=== PATIENT | male | born 1995 | race Caucasian/White ===

== ENCOUNTER 2021-02-25 14:52 | Emergency (ER) | payer OTHER ==
[2021-02-25 16:51] LABS: BASOPHIL 0.3 % (0-2); EOSINOPHIL 0.3 % (0-5); HCT 50.3 % (42.0-52.0); LYMPHOCYTE 17.5 % (15-48); MCH 29.4 pg (25.0-31.0); MCHC 33.8 g/dL (32.0-36.0); MONOCYTE 3.9 % (0-12); MPV 9.5 fL (6.0-9.5); NEUTROPHIL 77.7 % (41-80); NRBC 0; PLT 191 K/uL (150-400); RBC 5.78 M/uL (4.70-6.00); RDW 11.7 % (11.5-14.0); WBC 7.4 K/uL (4.0-10.5)
[2021-02-25 16:52] LABS: BILIRUBIN 1+ mg/dL (NEGATIVE); BLOOD NEGATIVE Ery/uL (NEGATIVE); CLARITY CLEAR (CLEAR); COLOR YELLOW (YELLOW); GLUCOSE (U) NORMAL (NORMAL); LEUKOCYTES TRACE Leu/uL (NEGATIVE); NITRITE NEGATIVE (NEGATIVE); PROTEIN NEGATIVE (NEGATIVE); SPECIFIC GRAVITY 1.025 (1.001-1.030)
[2021-02-25 16:56] LABS: MARIJUANA (THC) POSITIVE (NEGATIVE)
[2021-02-25 16:57] LABS: AMPHETAMINES NEGATIVE (NEGATIVE); BARBITURATES NEGATIVE (NEGATIVE); ECSTASY (MDMA) NEGATIVE (NEGATIVE); METHADONE NEGATIVE (NEGATIVE); OPIATES NEGATIVE (NEGATIVE); OXYCODONE NEGATIVE (NEGATIVE)
[2021-02-25 16:59] LABS: BACTERIA TRACE
[2021-02-25 17:18] LABS: ALBUMIN 4.4 g/dL (3.4-5.0); BILIRUBIN - TOTAL 0.7 mg/dL (0.2-1.0); BUN/CREAT RATIO (CALC) 13.7 RATIO; CREATININE 0.95 mg/dL (0.67-1.17); GLOBULIN (CALCULATION) 3.3 g/dL; POTASSIUM 3.9 mmol/L (3.5-5.1); TOTAL PROTEIN 7.7 g/dL (6.4-8.2)
== END 2021-02-25 18:04 | disposition home or self-care (01) ==
LOC: FER 14:52
PROVIDERS: Internal Medicine
DX: R00.2 Palpitations (principal); F17.290 Nicotine dependence, other tobacco product, uncomplicated
CPT/HCPCS: 36415; 80053; 80305; 81001; 83690; 84145; 84443; 84484; 85025; 87088; 93005